=== PATIENT | male | born 1980 | race Caucasian/White ===

== ENCOUNTER → 2018-09-30 | Outpatient (CLI) | payer BC, OTHER | LOC: LAB 09:12 | PROVIDERS: ATTEND Family Medicine | DX: E01.0 Iodine-deficiency related diffuse (endemic) goiter (principal); E07.9 Disorder of thyroid, unspecified | CPT/HCPCS: 36415; 84439; 84443; 84481 ==

== ENCOUNTER → 2018-10-01 | Outpatient (CLI) | payer BC, OTHER ==
--- NOTE | 2018-10-01 09:19 | RADIOLOGY IMAGING REPORT ---
FACILITY: PATIENT NAME: Ronni Daugherty : 1980 MR: [id number] V: [id number] EXAM DATE: ORDERING PHYSICIAN: KANU SALMERON TECHNOLOG[place] [facility] [place] Ronni Daugehrty : 1980 Visit/Account:[id number] Date of Sevice: 10/01/2018 THYROID HISTORY: Left thyroid megaly COMPARISON: None. FINDINGS: SIZE: Right lobe: 5.5 x 1.1 x 1.7 cm Left lobe: 6.1 x 2.7 x 3 cm Isthmus: 4 mm PARENCHYMA: Homogeneous. NODULES: Right lobe: * None discrete. Left lobe: * In the mid left lobe there is a 3.9 x 3.5 x 2.6 cm irregular hypoechoic hypervascular mass with in ternal calcifications. Isthmus: * There is a 1.2 cm well-circumscribed hypoechoic nodule in the isthmus VASCULARITY: Within normal limits. ADDITIONAL FINDINGS: None. IMPRESSION: Ultrasound-guided fine-needle aspiration is recommended for the 3.9 cm irregular hypervascular mass i n the mid left lobe containing calcifications and also the 1.2 cm hypoechoic nodule in the isthmus REFERENCE: 2015 [place] [employer] Management Guidelines for Adult Patients with Thyroid Nodules and D ifferentiated Thyroid Cancer: The [place] [employer] Guidelines Task Force on Thyroid Nodul es and Differentiated Thyroid Cancer. SONOGRAPHIC PATTERNS: * Benign: Purely cystic nodules (no solid component); estimated risk of malignancy <1 percent; no bi opsy recommended. * Very Low Suspicion: Spongiform or partially cystic nodules without any of the sonographic features described in low, intermediate, or high suspicion patterns; estimated risk of malignancy <3 percent; consider FNA at > 2 cm (Observation without FNA is also a reasonable option). * Low Suspicion: Isoechoic or hyperechoic solid nodule, or partially cystic nodule with eccentric so lid areas, without microcalcification, irregular margin or ETE (extra-thyroidal extension), or taller than wide shape; estimated risk of malignancy 5-10 percent; recommend FNA at >1.5 cm. * Intermediate Suspicion: Hypoechoic solid nodule with smooth margins without microcalcifications, E TE (extra-thyroidal extension), or taller than wide shape; estimated risk of malignancy 10-20 percent ; recommend FNA at > 1 cm. * High Suspicion: Solid hypoechoic nodule or solid hypoechoic component of a partially cystic nodule with one or more of the following features: irregular margins (infiltrative, microlobulated), microc alcifications, taller than wide shape, rim calcifications with small extrusive soft tissue component, evidence of ETE (extra-thyroidal extension); estimated risk of malignancy >70-90 percent; recommend FNA at > 1 cm. NOTES: * Although a sonographically suspicious subcentimeter thyroid nodule without evidence of extrathyroi keenan extension or sonographically suspicious lymph nodes may be observed with close sonographic follow -up rather than pursuing immediate FNA, patient age and preference may modify decision-making. A > 50% interval increase in nodule volume and/or development of new suspicious sonographic features are felt to be a valid reasons for potential re-aspiration of a nodule previously shown to have benig n FNA cytology. Report Dictated By: Alejandra Andrade MD at 10/01/2018 8:42 AM Report E-Signed By: Alejandra Andrade MD at 10/01/2018 9:14 AM WSN:MARY
== END ==
LOC: US 00:28
PROVIDERS: ATTEND Family Medicine
DX: E04.1 Nontoxic single thyroid nodule (principal)
CPT/HCPCS: 76536

== ENCOUNTER → 2018-10-22 | Outpatient (CLI) | payer BC, OTHER ==
[~2018-10-22] MED LIST: CEFU500T10 PO; HYDR-653 PO; LORA-629 PO; MUPI22OI28 TP
[2018-10-22 09:57] LABS: INR 1.03
--- NOTE | 2018-10-22 18:13 | RADIOLOGY IMAGING REPORT ---
[place] [facility] [place] NAME: Ronni Daugherty : 1980 MR: [id number] V: [id number] EXAM DATE: ORDERING PHYSICIAN: GUANAKITO DEL VALLE TECHNOLOGIST: Location: [facility] [place] Patient: Ronni Daugherty : 1980 Visit/Account:[id number] Date of Sevice: 10/22/2018 Exam type: US BIOPSY LOC/INJ THYROID History: Thyroid Mass Comparison: October 01, 2018. Findings: Informed consent was obtained. The left-sided the patient's neck was prepped and draped usual steril e fashion. Local anesthesia was accomplished 1% lidocaine. Under direct and continuous sonographic guidance four 25-gauge FNA biopsies were obtained through the dominant nodule in the left lobe. Attention was then directed towards the isthmus nodule.. Local anesthesia again accomplished with 1% lidocaine. Under direct and continuous sonographic guidance four 25-gauge FNA biopsies were obtaine d through the isthmus nodule. The samples were given to the angiography technologist for processing. The procedure was accomplished without apparent complication. IMPRESSION: 1. Successful sonographically guided FNA biopsies of the left thyroid mass in the isthmus mass. Report Dictated By: Alejandra Andrade MD at 10/22/2018 6:04 PM Report E-Signed By: Alejandra Andrade MD at 10/22/2018 6:06 PM WSN:[email or web address]
== END ==
LOC: US 00:42
PROVIDERS: ATTEND Physician Assistant
DX: D34 Benign neoplasm of thyroid gland (principal)
CPT/HCPCS: 10005; 10006; 36415; 85610; 88104; 88172

== ENCOUNTER 2018-11-11 00:14 | Observation (INO) | payer BC ==
[~2018-11-11] VITALS: Ht 182.9 cm; Wt 77.6 kg
[2018-11-11] VITALS (13 sets, daily range): BP systolic 109–137; BP diastolic 59–91
[~2018-11-11 00:14] MED LIST changes: -CEFU500T10 PO; -HYDR-653 PO
[2018-11-11 10:49] LABS: PLATELET COUNT, AUTOMATED 401 K/uL (150-450)
[2018-11-11] MEDS ORDERED: ceFAZolin(*) 2GM/D5W 50ML 50 ML IVPB ONE (12:20)
[2018-11-11] MEDS ORDERED: MIDAZOLAM 2 MG/2 ML VIAL IVP PRN (12:20)
[2018-11-11] MEDS ORDERED: FAMOTIDINE 20 MG TAB PO ONE (12:20)
[2018-11-11] MEDS ORDERED: LIDOCAINE/SOD BICARB 8.4% SYR ID ONE (12:20)
[2018-11-11] MEDS ORDERED: NORMOSOL R SOLN(*) 1000 ML BAG 1,000 ML IV PRN (12:20)
[2018-11-11] MEDS ORDERED: LIDO/EPI 1% MDV 1:100,000 20ML INFIL ONE (12:51)
[2018-11-11] MEDS ORDERED: LR(*) 1000 ML BAG 1,000 ML IV PRN (13:14)
--- NOTE | 2018-11-11 13:14 | Post Operative Note ---
Operative Note - ENT Operative Day Date: Nov 11, 2018 Physicians Surgeon: Redd Chip Tuner: Kannan Anesthesia: GETA Diagnosis Pre-Op Diagnosis: uninodular goiter Post-Op Diagnosis: same Procedure Procedure(s): total thyroidectomy Specimen Removed:(Maybe N/A): total thyroid Complications: none Fluids Fluids: see anesthesia note Estimated Blood Loss: 100 ml PAULA KEVIN JR, MD Nov 11, 2018 13:14
[2018-11-11] MEDS ORDERED: ACETAMINOPHEN 325 MG TAB PO PRN (13:15)
[2018-11-11] MEDS ORDERED: ONDANSETRON 4 MG ODT TABDP SL PRN (13:15)
[2018-11-11] MEDS ORDERED: fentaNYL CITR 100 MCG/2 ML AMP ONE ×2 (15:43→15:53)
[2018-11-11] MEDS: APAP/HYDROCODONE 325/5 TAB PO PRN ×2 (17:12→21:33)
[2018-11-11] MEDS ORDERED: NS(*) 0.9% 250 ML BAG 250 ML ONE (21:13)
[2018-11-11] MEDS: ceFAZolin(*) 1 GM VIAL 1 GM in NS(*) 0.9% 100 ML MINI-BAG 100 ML IVPB SCH (21:24)
[2018-11-12 03:16] VITALS: BP 125/59
[2018-11-12] MEDS: APAP/HYDROCODONE 325/5 TAB PO PRN (03:28)
--- NOTE | 2018-11-12 04:04 | OPERATIVE REPORT 1 ---
EVENT DATE: November 11, 2018 SURGEON: Aniket Rainey Jr., MD ANESTHESIOLOGIST: Nash Fisher MD ANESTHESIA: General endotracheal. ETHNOLOGY TEACHER: Emperatriz Brunner, [facility], [facility] PREOPERATIVE DIAGNOSES 1. Uninodular goiter. 2. Fine needle aspiration cytology suspicious for thyroid carcinoma. POSTOPERATIVE DIAGNOSES 1. Uninodular goiter. 2. Fine needle aspiration cytology suspicious for thyroid carcinoma. PROCEDURE PERFORMED Total thyroidectomy. INDICATIONS FOR PROCEDURE Please refer to the preoperative note. DESCRIPTION OF PROCEDURE The patient was positively identified in the preoperative area. He was accompanied by there by both parents. Risks were again explained, including but not limited to bleeding, infection, injury to the recurrent laryngeal nerves, transient or permanent dysphonia, injury to the parathyroid gland, transient or permanent hypocalcemia, and those associated with anesthesia. The patient acknowledged understanding of those risks. He was then brought back to the operative suite, laid supine on the operating table, and anesthesia was administered. Once asleep, the patient was positioned and prepped and draped in the usual sterile fashion. A 7 cm incision was planned in a favorable neck crease overlying the thyroid gland. This was marked. Approximately 2 mL of 1% lidocaine with epinephrine was infiltrated. The aforementioned incision was then made with a #15 blade, and the underlying subcutaneous tissue was then dissected with Bovie electrocautery. The platysma muscle was identified and divided with Bovie electrocautery. Subplatysmal flaps were elevated superiorly to the level of the thyroid notch and inferiorly to the level of the sternal notch. The strap musculature was identified and divided along the median raphe. I initially elevated the strap musculature off of the left thyroid lobe. This was found to be quite enlarged. I then skeletonized the superior pole and came across this with a harmonic scalpel. I then carefully dissected the lobe from the surrounding connective tissue. The lobe was medialized. Both parathyroid glands were felt to be identified and preserved in situ. The recurrent laryngeal nerve was identified and confirmed with the nerve probe. This was traced to its entrance into the trachea. I then came across the inferior lobe vessels with the harmonic scalpel. I then again medialized the lobe and divided it from the trachea at Zee ligament. I then proceeded with the contralateral lobe. In a similar fashion, strap musculature was elevated off of it. The superior lobe vessels were identified and come across with a harmonic scalpel. I then carefully dissected the lobe from the surrounding connective tissue. Both parathyroid glands and the recurrent laryngeal nerve were identified. The nerve was confirmed with the nerve probe. This was traced to its entrance into the trachea. I then came across the inferior lobe vessels with harmonic scalpel. I medialized the lobe and divided it from the trachea at Zee ligament. The total thyroid was sent for permanent pathology. This was marked. The wound was copiously irrigated with normal saline solution. A Valsalva maneuver was performed. Hemostasis was presumed. Fibrillar Surgicel was placed in the bilateral wound bed. A Kasi-Hayes drain was placed and secured to the skin with a suture. The platysma and strap musculature were then reapproximated with interrupted chromic suture. The skin was closed in a multilayer fashion. Of note, the laryngeal nerve monitored was applied to the patient and utilized throughout the case. Estimated blood loss was 100 mL. There were no complications. [facility]
[2018-11-12] MEDS: ceFAZolin(*) 1 GM VIAL 1 GM in NS(*) 0.9% 100 ML MINI-BAG 100 ML IVPB SCH (05:20)
[2018-11-12] MEDS ORDERED: HYDR-653 PO (06:47)
[2018-11-12] MEDS ORDERED: CEFU500T10 PO (06:47)
[2018-11-12 06:55] VITALS: BP 129/79
--- NOTE | 2018-11-12 06:56 | Hospitalist Depart ---
Discharge Summary Reason for Hosp/Final Diag: (1) Thyroid carcinoma Departure Weight (Pounds): 171 Result Diagram: 11/11/18 1040 Condition: Improved Discharge Instructions Home Meds Active Scripts Hydrocodone Bit/Acetaminophen (NORCO 5-325 TABLET) 1 Each Tablet, 1 EACH PO 3- 4XD for PAIN for 3 Days, #10 TAB 0 Refills Prov:GUANAKITO DEL VALLE PA-C 11/12/18 Cefuroxime Axetil (CEFUROXIME) 500 Mg Tablet, 500 MG PO BID for 7 Days, #14 TAB 0 Refills Prov:GUANAKITO DEL VALLE PA-C 11/12/18 Mupirocin (MUPIROCIN) 22 Gm Oint...g., 1 LAVERNE TP BID for 14 Days, #1 TUBE 1 Refill Prov:GUANAKITO DEL VALLE PA-C 10/03/18 Reported Medications Loratadine (LORATADINE) 10 Mg Tablet, 10 MG PO QDAY 11/07/18 Diet: Regular Activity: No Heavy Lifting (No lifting over 15 lbs. OK to shower but don't soak steristrips.) Venous Thromboembolism VTE Risk Physician Assess for VTE Risk: Yes Patient's VTE Risk: Low Antithrombotics Is Pt On Any Antithrombotics?: No GUANAKITO DEL VALLE PA-C Nov 12, 2018 06:56
[2018-11-12] MEDS ORDERED: LORATADINE 10 MG TAB PO SCH (09:00)
== END 2018-11-12 07:21 | disposition home or self-care (01) ==
LOC: OR 00:14 → MED 16:35
PROVIDERS: ADMIT Otolaryngology; ATTEND Otolaryngology
DX: C73 Malignant neoplasm of thyroid gland (principal)
CPT/HCPCS: 36415; 60240; 83970; 85025; 88307; G0378; J0690; J2250; J3010

== ENCOUNTER → 2018-12-10 | Outpatient (CLI) | payer BC ==
[~2018-12-10] MED LIST changes: +CEFU500T10 PO; +HYDR-653 PO
--- NOTE | 2018-12-11 05:21 | PROCEDURE NOTE ---
EVENT DATE: December 10, 2018 DIAGNOSIS Papillary carcinoma of the thyroid gland, status post complete thyroidectomy by Dr. Aniket Rainey on 11/02/18. Tumor size 4.2 x 2 cm. Tumor is metastatic to five of six lymph nodes at level 6. Lymphovascular invasion present. Referral for postoperative iodine-131 therapy. Pathologic stage pT3a pN1a pMX. Tumor is involving the left lobe. Right lobe benign. PROCEDURE Oral administration of iodine-131 under direct supervision in the nuclear medicine department at [facility]. Patient received oral dose of 155.8 mCi of iodine-131 under my direct supervision. Signed consent has been obtained from the patient, and appropriate radiation precautions were reviewed. Patient is instructed to start replacement therapy 72 hours after the administration of iodine-131. He has been scheduled for a whole-body met scan in 10 days. He is also scheduled for a baseline post- treatment CT scan of the neck and thorax at six weeks, along with thyroglobulin tumor marker, free T4 and TSH. I went through a list of questions from the patient today. Letter was generated as well that the patient should be off work until Sunday of next week. He was instructed to contact me directly if he has had any adverse effects from the iodine-[address] [facility] [place]
== END ==
LOC: NUC 01:14
PROVIDERS: ATTEND Radiology Radiation Oncology
DX: C73 Malignant neoplasm of thyroid gland (principal)
CPT/HCPCS: 79005; A9517; A9528